=== PATIENT | male | born 1965 | race Caucasian/White ===

== ENCOUNTER 2017-06-03 17:45 | Emergency (ER) | payer OTHER ==
[~2017-06-03] VITALS: Ht 185.4 cm; Wt 9.1 kg
[2017-06-03 18:00] VITALS: BP 145/86
--- NOTE | 2017-06-03 18:06 | NUR ---
PT AMBULATED TO ER BED 04
--- NOTE | 2017-06-03 18:11 | NUR ---
51/M BIB C/O RIGHT NEPHROSTOMY TUBE DISLODGED 30 MINS PRIOR TO ARRIVAL. HX KIDNEY STONES. URINE COLLECTED.
--- NOTE | 2017-06-03 18:24 | NUR ---
Patient being evaluated by physician at bedside.
[2017-06-03] MEDS ORDERED: NACL 0.9% 1,000 ML IV ONE (18:40)
[2017-06-03 19:07] LABS: BASOPHILS # (AUTO) 0.1 K/uL (0.00-0.22); BASOPHILS % (AUTO) 1.1 % (0.0-2.0); EOSINOPHILS # (AUTO) 0.1 K/uL (0-0.4); HEMATOCRIT 42.4 % (36-52); HEMOGLOBIN 14.4 g/dL (12.0-18.0); LYMPHOCYTES # (AUTO) 1.8 K/uL (2.0-11.5); LYMPHOCYTES % (AUTO) 18.6 % (20.5-51.1); MEAN CORPUSCULAR HEMOGLOBIN 29 pg (27-31); MEAN CORPUSCULAR HGB CONC 34 g/dL (33-37); MEAN CORPUSCULAR VOLUME 86 fL (80-94); MONOCYTES # (AUTO) 0.7 K/uL (0.8-1.0); NEUTROPHILS # (AUTO) 7.2 K/uL (1.8-7.7); NEUTROPHILS % (AUTO) 72.3 % (42.2-75.2); PLATELET COUNT (AUTO) 466 K/uL (140-450); RED BLOOD CELL COUNT(AUTO) 4.93 MIL/uL (4.20-6.10); RED CELL DISTRIBUTION WIDTH 12.3 % (11.6-13.7); WHITE BLOOD COUNT (AUTO) 9.9 K/uL (4.8-10.8)
--- NOTE | 2017-06-03 19:13 | NUR ---
REPORT GIVEN TO LORRAINE WINTER. IVF GIVEN PER MAR. AWAITING LAB RESULTS.
[2017-06-03 19:17] LABS: APPEARANCE,URINE TURBID (CLEAR); BILIRUBIN,URINE NEGATIVE (NEGATIVE); BLOOD, URINE 3+ (NEGATIVE); COLOR,URINE RED (YELLOW); LEUKOCYTE ESTERASE ,URINE NEGATIVE (NEGATIVE); NITRITE, URINE NEGATIVE (NEGATIVE); UGLUCOSE NEGATIVE (NEGATIVE)
[2017-06-03 19:18] LABS: ANION GAP 13.2 (8-16); CARBON DIOXIDE 26.6 mmol/L (21-32); CREATININE 1.4 mg/dL (0.7-1.3); POTASSIUM 3.8 mmol/L (3.5-5.1)
[2017-06-03 19:18] LABS: RBC,URINE TOO NUMEROUS TO COUN /HPF (0-5)
[2017-06-03 19:19] LABS: WBC,URINE 0-5 (RARE) /HPF (0-5)
[2017-06-03 19:23] LABS: ALBUMIN 3.2 g/dL (3.4-5.0); TOTAL BILIRUBIN 0.3 mg/dL (0.0-1.0)
--- NOTE | 2017-06-03 20:25 | NUR ---
Patient does not wish to proceed with medical care recommended by DR. MAKI. Patient given information related to possible complications, up to and including , which could occur as a result of leaving hospital at this time. Patient verbalizes understanding of risks involved leaving against medical advice. Patient has signed AMA form. RX OF NORCO 5MG-325MG GIVEN.
== END 2017-06-03 20:27 | disposition left against medical advice (07) ==
LOC: MED 17:45
DX: T83.098A Other mechanical complication of other urinary catheter, initial encounter (principal); R31.9 Hematuria, unspecified
CPT/HCPCS: 36415; 80053; 81001; 83690; 85025; 96360; 99284; J7030